=== PATIENT | female | born 1980 | race Caucasian/White ===

== ENCOUNTER 2020-01-09 04:02 | Observation (INO) | payer OTHER ==
[~2020-01-09] VITALS: Ht 160 cm; Wt 118.4 kg
[2020-01-09] VITALS (17 sets, daily range): BP systolic 91–154; BP diastolic 58–100
[~2020-01-09 04:02] MED LIST: DARVOCET N 1001 TAB PO; DAYPRO600 M1 PO; PHENERGAN25 M1 PO; ZOFRAN4 MG PO
--- NOTE | 2020-01-09 04:53 | NUR ---
PT PROVIDED WITH URINE CUP.
[2020-01-09 05:16] LABS: ALBUMIN 3.4 gm/dl (3.1-4.5); ALKALINE PHOSPHATASE 92 U/L (45-117); BUN 11 mg/dl (7-24); CHLORIDE 112 mmol/L (98-107); CREATININE 0.71 mg/dL (0.55-1.02); POTASSIUM 3.4 mmol/L (3.5-5.1); SGOT/AST 16 IU/L (3-35); SGPT/ALT 31 U/L (12-78); SODIUM 143 mmol/L (136-145); TOTAL PROTEIN 6.9 gm/dL (6.4-8.2)
[2020-01-09 05:49] LABS: BILIRUBIN NEGATIVE (NEGATIVE); BLOOD NEGATIVE (NEGATIVE); CLARITY CLEAR (CLEAR); COLOR STRAW (YELLOW); GLUCOSE NEGATIVE (NEGATIVE); KETONE NEGATIVE (NEGATIVE); LEUKO ESTERASE NEGATIVE (NEGATIVE); NITRITE NEGATIVE (NEGATIVE); SPECIFIC GRAVITY 1.005 (1.005-1.030); UROBILINOGEN 0.2 E.U./dl (0.2-1.0)
[2020-01-09 05:52] LABS: BACTERIA 1+
[2020-01-09 06:09] LABS: BASO % 0.4 % (0.0-1.0); EOS # 0.1 10*3/uL (0.0-0.4); EOS % 1.8 % (1.0-4.0); HEMATOCRIT 35.3 % (37.0-47.0); LYMPH % 44.4 % (27.0-41.0); MEAN CELL VOLUME 88.5 fl (81.0-99.0); MEAN CORPUSCULAR HGB 29.8 pg (27.0-31.0); MEAN CORPUSCULAR HGB CONC 33.7 g/dl (33.0-37.0); MONO # 0.4 10*3/uL (0.1-1.0); MONO % 8.1 % (3.0-9.0); NEUT # 2.1 10*3/uL (2.3-7.9); NEUT % 45.3 % (47.0-73.0); PLATELET COUNT AUTOMATED 178 10*3/uL (130-400); RED BLOOD COUNT 3.99 10*6/uL (4.10-5.10); RED CELL DISTRI WIDTH 11.9 % (0-14.5); WHITE BLOOD COUNT 4.6 10*3/uL (4.8-10.8)
--- NOTE | 2020-01-09 07:41 | NUR ---
PT RESTING IN BED, PT REMAINS IN A-FIB. A SECOND DOSE OF CARDIZEM ADMINISTERRED PER DR QUAN. PT DOES NOT WANT TO BE ADDMITTED, PT IS AFRAID OF COVID.I EXPLAINED TO PT SHE IS MORE AT RISK WITH TH A-FIB. WE WILL SEE OW THE SECOND DOSE WORKS, SHE IS IN AGREEMENT. HR 113.
--- NOTE | 2020-01-09 07:50 | NUR ---
ADMINISTERED IV CARDIZEM, PT REMAINS A-FIB, HR 80-90'S, BP 94/68. PT HAS NO COMPLAINTS. WILL CONTINUE TO MONITOR.
--- NOTE | 2020-01-09 09:35 | NUR ---
pt transported to [facility] in stable condition, remains in a-fib in the 90-120's with activity. cardaizem gtt infusing at 5 cc/hr per order. bedside reports given and sbar faxed.
--- NOTE | 2020-01-09 09:36 | NUR ---
A 39, admitted to , under the services of NAHOMI Cavazos DO with a diagnosis of ATRIAL FIBRILATION. Chief complaint is PALPITATIONS, NAUSEA,VOMITING,FEVERS. Patient arrived via bed from ER. Monitor applied. Initial assessment completed. Vital signs taken and recorded. NAHOMI CAVAZOS DO notified of admission to the unit. Orders received. See assessment for past medical history, medications and allergies. Patient and/or family oriented to unit. [facility] visitation policy reviewed. Clothing/patient valuable form completed. NARESH LOTT
--- NOTE | 2020-01-09 10:30 | NUR ---
CONSULT CALLED TO [facility] PER PHYSICIAN ORDER. PROVISIONING ANALYST GIVEN APPROPRIATE INFORMATION AND STATES THAT THE COVERING PHYSICIAN WILL SEE PATIENT.
--- NOTE | 2020-01-09 10:38 | NUR ---
A 39, admitted to 5E, under the services of NAHOMI Cavazos DO with a diagnosis of AFIB. Chief complaint is AFIB. Patient arrived via bed from ER. Monitor applied. Initial assessment completed. Vital signs taken and recorded. NAHOMI CAVAZOS DO notified of admission to the unit. Orders received. See assessment for past medical history, medications and allergies. Patient and/or family oriented to unit visitation policy reviewed. Clothing/patient valuable form completed. GABRIELE PURVIS
[2020-01-09] MEDS ORDERED: ALPRAZOLAM2 MG PO (10:59)
[2020-01-09] MEDS ORDERED: DILTIAZEM HCL60 MG PO (11:00)
[2020-01-09] MEDS ORDERED: LAMOTRIGINE200 MG PO (11:01)
[2020-01-09] MEDS ORDERED: OMEPRAZOLE MAGN20 MG PO (11:02)
[2020-01-09] MEDS ORDERED: PRISTIQ ER25 MG PO (11:02)
[2020-01-09] MEDS ORDERED: B COMPLEX1 EACH PO (11:06)
[2020-01-09] MEDS ORDERED: VITAMIN C500 M8 PO (11:06)
[2020-01-09] MEDS ORDERED: VITAMIN E100 UNI1 PO (11:07)
[2020-01-09] MEDS ORDERED: VITAMIN D350 MC2 PO (11:07)
[2020-01-09] MEDS ORDERED: ADIPEX-P37.5 M2 PO (11:08)
--- NOTE | 2020-01-09 11:20 | NUR ---
MAYO BALTAZAR NP NOTIFIED THAT MED REC IS UPDATED PER PT.
--- NOTE | 2020-01-09 11:49 | NUR ---
PT NOTIFIED THAT SHE TO BE NPO AT THIS TIME FOR PROCEDURE BY DIRECTOR OF SPORTS MEDICINE. PT ALSO NOTIFIED OF NEW MEDICATIONS THAT ARE ORDERED.
--- NOTE | 2020-01-09 11:51 | NUR ---
DR CORONEL GIVES ORDERS TO PLACE PT ON CARDIZEM ER 60 MG PO BID, TO BEGIN AT 2100, NEW ORDERS GIVEN TO PLACE ORDERS ON APIXABAN 5 MG PO, DOSE TO BE GIVEN NOW AND NEXT DOSE TO BE GIVEN AT 2100. PT IS TO BE NPO AT THIS TIME. PT TO HAVE CARDIOVERSION PROCEDURE. PT TO CONTINUE ON 5 MG CARDIZEM DRIP AND TO STOP CARDIZEM DRIP AFTER CARDIOVERSION. A FOLLOW UP EKG WILL BE ORDERED AFTER CARDIOVERSION AND IT IS POSSIBLE THAT PT CAN BE DISCHARGED HOME IF NO OTHER ABNORMALITIES ARE SHOWN. PT IS TO FOLLOW UP WITH DR CORONEL AFTER D/C.
--- NOTE | 2020-01-09 12:37 | NUR ---
PT TAKEN OFF OF FLOOR FOR CARDIOVERSION AT THIS TIME.
--- NOTE | 2020-01-09 13:54 | NUR ---
PT RETURNED TO FLOOR AT THIS TIME, IN A STABLE CONDITION.
[2020-01-09] MEDS ORDERED: ELIQUIS5 M1 PO (14:05)
--- NOTE | 2020-01-09 15:29 | NUR ---
PT RESTING IN BED, NO DISTRESS NOTED. STATES SHE HAS SOME MUSCLE SORENESS BUT NO REAL PAIN AND FEELS BETTER THAT SHES BACK IN RHYTHM. DENIES SOB OR CHEST PAIN. SAFETY MEASURES IN PLACE.
--- NOTE | 2020-01-09 17:39 | NUR ---
PT GIVEN TYLENOL 650 MG PO AT THIS TIME FOR C/O HEADACHE. WILL MONITOR FOR EFFECTIVENESS. CALL LIGHT IN REACH.
--- NOTE | 2020-01-09 18:39 | NUR ---
PT REPORTS TYLENOL EFFECITVE, RESTING IN BED. NO DISTRESS NOTED.
[2020-01-10] VITALS: BP 101/59
[2020-01-10 07:17] LABS: BASO % 0.6 % (0.0-1.0); EOS % 1.1 % (1.0-4.0); HEMATOCRIT 33.3 % (37.0-47.0); LYMPH # 1.9 10*3/uL (1.3-4.4); LYMPH % 51.9 % (27.0-41.0); MEAN CORPUSCULAR HGB 29.1 pg (27.0-31.0); MEAN CORPUSCULAR HGB CONC 32.7 g/dl (33.0-37.0); MEAN PLATELET VOLUME 9.8 fl (9.6-12.3); MONO # 0.2 10*3/uL (0.1-1.0); MONO % 6.7 % (3.0-9.0); NEUT # 1.4 10*3/uL (2.3-7.9); NEUT % 39.4 % (47.0-73.0); PLATELET COUNT AUTOMATED 169 10*3/uL (130-400); RED BLOOD COUNT 3.74 10*6/uL (4.10-5.10); WHITE BLOOD COUNT 3.6 10*3/uL (4.8-10.8)
--- NOTE | 2020-01-10 07:30 | NUR ---
TOOK OVER CARE OF PT AT THIS TIME. PT RESTING IN BED. NO S/S OF DISTRESS NOTED. NO COMPLAINTS VOICED. RESPIRATIONS EASY AND UNLABORED. PT PLEASANT MOOD. SAFETY MEASURES IN PLACE. CALL LIGHT IN REACH.
[2020-01-10 07:32] LABS: ALBUMIN 3.1 gm/dl (3.1-4.5); BUN 9 mg/dl (7-24); CHLORIDE 110 mmol/L (98-107); POTASSIUM 3.7 mmol/L (3.5-5.1); SGOT/AST 14 IU/L (3-35); SODIUM 137 mmol/L (136-145)
[2020-01-10 07:40] LABS: ALKALINE PHOSPHATASE 75 U/L (45-117); CHOLESTEROL 154 mg/dL (<200); CREATININE 0.67 mg/dL (0.55-1.02); FREE T4 0.95 ng/dl (0.76-1.46); HDL CHOLESTEROL 64 mg/dl (40-60); LDL CHOLESTEROL 80 mg/dL (9-159); SGPT/ALT 29 U/L (12-78); THYROID STIM HORMONE (HS) 0.522 uIU/ml (0.358-4.75); TOTAL PROTEIN 6.2 gm/dL (6.4-8.2); TRIGLYCERIDES 52 mg/dl (<150); VLDL CHOLESTEROL 10 mg/dL (6-40)
[2020-01-10 07:59] LABS: VITAMIN D, 25-HYDROXY 26.4 ng/mL (30-100)
[2020-01-10 08:16] VITALS: BP 102/67
--- NOTE | 2020-01-10 08:22 | NUR ---
Pulse ox 99% RA. No signs of respiratory distress.
--- NOTE | 2020-01-10 08:39 | NUR ---
Shift chart check completed.
[2020-01-10] MEDS ORDERED: DILTIAZEM HCL60 M1 PO ×2 (10:14)
--- NOTE | 2020-01-10 10:35 | NUR ---
DR JAMESON CALLED FOR CLARIFICATION OF CARDIZEM ORDER. PT STATES THAT CARDILOGIST TOLD HER THAT SHE WILL ONLY BE TAKING CARDIZEM 60 MG XR AT BEDTIME. ORDER ON EMAR STATES 60 MG BID 0900 AND 2100. PT REFUSED CARDIZEM THIS MORNING. DR JAMESON CHANGES CARDIZEM ORDERS; CARDIZEM 60 MG PO BID D/C'D. NEW ORDERS RECEIVED FOR CARDIZEM CD 120 MG PO AT HS. NEW ORDERS PLACED. WILL NOTIFY PATIENT OF THESE ORDERS.
--- NOTE | 2020-01-10 10:38 | NUR ---
DR GONZALEZ NOTIFIED OF MEDICATIONS CHANGES PER TELEPHONE ORDERS GIVEN BY DR JAMESON.
[2020-01-10] MEDS ORDERED: CARDIZEM CD120 M2 PO (10:48)
--- NOTE | 2020-01-10 10:48 | NUR ---
Discharge instructions reviewed with patient/family. Patient receptive and verbalizes understanding. Follow-up care arranged. Written instructions given to patient/family. NARESH LOTT
== END 2020-01-10 10:48 | disposition home or self-care (01) ==
LOC: ED 04:02 → EDHOLD 08:07 → 5E 08:07
PROVIDERS: Emergency Medicine; Registered Nurse; ADMIT Emergency Medicine
DX: I48.91 Unspecified atrial fibrillation (principal); E87.6 Hypokalemia; D68.9 Coagulation defect, unspecified; K21.9 Gastro-esophageal reflux disease without esophagitis; F41.1 Generalized anxiety disorder; F39 Unspecified mood [affective] disorder; E44.0 Moderate protein-calorie malnutrition; E66.9 Obesity, unspecified; E87.8 Other disorders of electrolyte and fluid balance, not elsewhere classified; D72.819 Decreased white blood cell count, unspecified; D64.9 Anemia, unspecified; E55.9 Vitamin D deficiency, unspecified; R73.9 Hyperglycemia, unspecified; Z68.41 Body mass index [BMI] 40.0-44.9, adult

== ENCOUNTER 2020-04-06 22:50 | Emergency (ER) | payer OTHER ==
[~2020-04-06] VITALS: Ht 160 cm
[~2020-04-06 22:50] MED LIST changes: +ADIPEX-P37.5 M2 PO; +ALPRAZOLAM2 MG PO; +B COMPLEX1 EACH PO; +CARDIZEM CD120 M2 PO; +DILTIAZEM HCL60 M1 PO; +DILTIAZEM HCL60 MG PO; +ELIQUIS5 M1 PO; +LAMOTRIGINE200 MG PO; +OMEPRAZOLE MAGN20 MG PO; +PRISTIQ ER25 MG PO; +VITAMIN C500 M8 PO; +VITAMIN D350 MC2 PO; +VITAMIN E100 UNI1 PO
[2020-04-06 23:20] LABS: BASO % 0.5 % (0.0-1.0); EOS # 0.1 10*3/uL (0.0-0.4); EOS % 1.2 % (1.0-4.0); HEMATOCRIT 37.2 % (37.0-47.0); LYMPH # 2.3 10*3/uL (1.3-4.4); LYMPH % 41.1 % (27.0-41.0); MEAN CELL VOLUME 88.4 fl (81.0-99.0); MEAN CORPUSCULAR HGB CONC 32.8 g/dl (33.0-37.0); MEAN PLATELET VOLUME 9.4 fl (9.6-12.3); MONO # 0.4 10*3/uL (0.1-1.0); MONO % 6.9 % (3.0-9.0); NEUT # 2.8 10*3/uL (2.3-7.9); NEUT % 50.1 % (47.0-73.0); PLATELET COUNT AUTOMATED 228 10*3/uL (130-400); RED BLOOD COUNT 4.21 10*6/uL (4.10-5.10); RED CELL DISTRI WIDTH 12.4 % (0-14.5); WHITE BLOOD COUNT 5.7 10*3/uL (4.8-10.8)
[2020-04-06 23:31] LABS: ACT PARTIAL THROMBO TIME 27.2 SECONDS (20.0-32.1)
[2020-04-06 23:37] LABS: ALBUMIN 3.7 gm/dl (3.1-4.5); ALKALINE PHOSPHATASE 89 U/L (45-117); BUN 13 mg/dl (7-24); CHLORIDE 107 mmol/L (98-107); CREATININE 0.85 mg/dL (0.55-1.02); SGOT/AST 15 IU/L (3-35); SGPT/ALT 28 U/L (12-78); SODIUM 143 mmol/L (136-145); TOTAL PROTEIN 7.3 gm/dL (6.4-8.2)
[2020-04-06 23:39] LABS: TROPONIN I < 0.015 ng/ml (<0.045)
== END 2020-04-07 00:41 | disposition home or self-care (01) ==
LOC: ED 22:50
PROVIDERS: Internal Medicine
DX: R07.89 Other chest pain (principal); Z79.899 Other long term (current) drug therapy

== ENCOUNTER 2020-04-17 00:01 | Emergency (ER) | payer OTHER | END 2020-04-17 01:22 | disposition home or self-care (01) | LOC: ED 00:01 | DX: Z20.828 Contact with and (suspected) exposure to other viral communicable diseases (principal); F41.9 Anxiety disorder, unspecified; F32.9 Major depressive disorder, single episode, unspecified; I48.91 Unspecified atrial fibrillation; Z88.8 Allergy status to other drugs, medicaments and biological substances; Z79.899 Other long term (current) drug therapy; Z79.2 Long term (current) use of antibiotics ==

== ENCOUNTER 2020-08-03 06:49 | Observation (INO) | payer OTHER ==
[~2020-08-03] VITALS: Ht 160 cm; Wt 129.7 kg
[2020-08-03] VITALS (9 sets, daily range): BP systolic 101–164; BP diastolic 52–111
[2020-08-03 07:19] LABS: BASO % 0.5 % (0.0-1.0); EOS # 0.1 10*3/uL (0.0-0.4); EOS % 1.5 % (1.0-4.0); HEMATOCRIT 37.8 % (37.0-47.0); LYMPH # 2.6 10*3/uL (1.3-4.4); LYMPH % 44.7 % (27.0-41.0); MEAN CELL VOLUME 87.1 fl (81.0-99.0); MEAN CORPUSCULAR HGB 29.3 pg (27.0-31.0); MEAN CORPUSCULAR HGB CONC 33.6 g/dl (33.0-37.0); MEAN PLATELET VOLUME 9.1 fl (9.6-12.3); MONO # 0.4 10*3/uL (0.1-1.0); MONO % 6.9 % (3.0-9.0); NEUT # 2.7 10*3/uL (2.3-7.9); NEUT % 46.1 % (47.0-73.0); PLATELET COUNT AUTOMATED 218 10*3/uL (130-400); RED BLOOD COUNT 4.34 10*6/uL (4.10-5.10); RED CELL DISTRI WIDTH 11.9 % (0-14.5); WHITE BLOOD COUNT 5.9 10*3/uL (4.8-10.8)
[2020-08-03 07:34] LABS: ACT PARTIAL THROMBO TIME 27.3 SECONDS (20.0-32.1); INTERNATIONAL NORM RATIO 0.9 (2.0-3.5)
[2020-08-03 07:36] LABS: ALBUMIN 3.9 gm/dl (3.1-4.5); ALKALINE PHOSPHATASE 114 U/L (45-117); BUN 19 mg/dl (7-24); CHLORIDE 110 mmol/L (98-107); CREATININE 0.63 mg/dL (0.55-1.02); POTASSIUM 3.5 mmol/L (3.5-5.1); SGOT/AST 13 IU/L (3-35); SGPT/ALT 40 U/L (12-78); SODIUM 142 mmol/L (136-145); TOTAL PROTEIN 7.4 gm/dL (6.4-8.2)
[2020-08-03 07:37] LABS: TROPONIN I < 0.015 ng/ml (<0.045)
[2020-08-03] MEDS ORDERED: CARDIZEM CD120 M2 PO (10:45)
[2020-08-04] VITALS: BP 122/90
[2020-08-04 02:00] VITALS: BP 109/60
[2020-08-04 04:00] VITALS: BP 110/64
[2020-08-04 06:25] LABS: BASO % 0.6 % (0.0-1.0); EOS # 0.1 10*3/uL (0.0-0.4); EOS % 1.9 % (1.0-4.0); HEMATOCRIT 35.3 % (37.0-47.0); LYMPH # 2.3 10*3/uL (1.3-4.4); LYMPH % 46.7 % (27.0-41.0); MEAN CELL VOLUME 87.8 fl (81.0-99.0); MEAN CORPUSCULAR HGB 29.4 pg (27.0-31.0); MEAN CORPUSCULAR HGB CONC 33.4 g/dl (33.0-37.0); MEAN PLATELET VOLUME 9.6 fl (9.6-12.3); MONO # 0.3 10*3/uL (0.1-1.0); MONO % 6.2 % (3.0-9.0); NEUT # 2.1 10*3/uL (2.3-7.9); NEUT % 44.4 % (47.0-73.0); PLATELET COUNT AUTOMATED 206 10*3/uL (130-400); RED BLOOD COUNT 4.02 10*6/uL (4.10-5.10); RED CELL DISTRI WIDTH 12.2 % (0-14.5); WHITE BLOOD COUNT 4.8 10*3/uL (4.8-10.8)
[2020-08-04 06:54] LABS: BUN 18 mg/dl (7-24); CHLORIDE 111 mmol/L (98-107); CREATININE 0.64 mg/dL (0.55-1.02); POTASSIUM 3.9 mmol/L (3.5-5.1); SODIUM 141 mmol/L (136-145)
[2020-08-04 08:00] VITALS: BP 120/80
[2020-08-04] MEDS ORDERED: ASPIRIN ADULT L81 M1 PO (11:50)
[2020-08-04] MEDS ORDERED: METOPROLOL SUCC50 M1 PO (11:50)
[2020-08-04] MEDS ORDERED: FLECAINIDE ACE100 M1 PO (11:50)
== END 2020-08-04 13:51 | disposition home or self-care (01) ==
LOC: ED 06:49 → 5E 08:58 → EDHOLD 08:58 → 4E 09:08 → 5E 09:20
PROVIDERS: Emergency Medicine; Student in an Organized Health Care Education/Training Program; ADMIT Internal Medicine; ATTEND Internal Medicine
DX: I48.20 Chronic atrial fibrillation, unspecified (principal); E87.8 Other disorders of electrolyte and fluid balance, not elsewhere classified; R79.82 Elevated C-reactive protein (CRP); E66.01 Morbid (severe) obesity due to excess calories; K21.9 Gastro-esophageal reflux disease without esophagitis; F41.1 Generalized anxiety disorder; F39 Unspecified mood [affective] disorder; E55.9 Vitamin D deficiency, unspecified; R00.2 Palpitations; E44.0 Moderate protein-calorie malnutrition; Z90.710 Acquired absence of both cervix and uterus; Z90.49 Acquired absence of other specified parts of digestive tract; Z98.890 Other specified postprocedural states; Z87.891 Personal history of nicotine dependence

== ENCOUNTER 2020-08-07 00:57 | Emergency (ER) | payer OTHER ==
[~2020-08-07 00:57] MED LIST changes: +ASPIRIN ADULT L81 M1 PO; +FLECAINIDE ACE100 M1 PO; +METOPROLOL SUCC50 M1 PO
[2020-08-07 02:03] LABS: BASO % 0.4 % (0.0-1.0); EOS # 0.1 10*3/uL (0.0-0.4); EOS % 1.8 % (1.0-4.0); HEMATOCRIT 32.7 % (37.0-47.0); LYMPH # 2.5 10*3/uL (1.3-4.4); LYMPH % 43.1 % (27.0-41.0); MEAN CELL VOLUME 87.9 fl (81.0-99.0); MEAN CORPUSCULAR HGB 29.6 pg (27.0-31.0); MEAN CORPUSCULAR HGB CONC 33.6 g/dl (33.0-37.0); MEAN PLATELET VOLUME 9.5 fl (9.6-12.3); MONO # 0.4 10*3/uL (0.1-1.0); NEUT # 2.7 10*3/uL (2.3-7.9); NEUT % 47.5 % (47.0-73.0); PLATELET COUNT AUTOMATED 208 10*3/uL (130-400); RED BLOOD COUNT 3.72 10*6/uL (4.10-5.10); RED CELL DISTRI WIDTH 11.9 % (0-14.5); WHITE BLOOD COUNT 5.7 10*3/uL (4.8-10.8)
[2020-08-07 02:42] LABS: ALBUMIN 3.4 gm/dl (3.1-4.5); BUN 13 mg/dl (7-24); CHLORIDE 110 mmol/L (98-107); CREATININE 0.71 mg/dL (0.55-1.02); LIPASE 83 U/L (73-393); POTASSIUM 3.9 mmol/L (3.5-5.1); SGOT/AST 11 IU/L (3-35); SGPT/ALT 31 U/L (12-78); SODIUM 142 mmol/L (136-145); TOTAL PROTEIN 6.5 gm/dL (6.4-8.2)
[2020-08-07 02:45] LABS: ALKALINE PHOSPHATASE 96 U/L (45-117)
[2020-08-07 02:46] LABS: TROPONIN I < 0.015 ng/ml (<0.045)
== END 2020-08-07 05:31 | disposition home or self-care (01) ==
LOC: ED 00:57
PROVIDERS: Student in an Organized Health Care Education/Training Program
DX: R07.89 Other chest pain (principal); T46.2X5A Adverse effect of other antidysrhythmic drugs, initial encounter; I48.91 Unspecified atrial fibrillation; E66.01 Morbid (severe) obesity due to excess calories; K21.9 Gastro-esophageal reflux disease without esophagitis; F41.9 Anxiety disorder, unspecified; F32.9 Major depressive disorder, single episode, unspecified; Z88.1 Allergy status to other antibiotic agents; Z88.8 Allergy status to other drugs, medicaments and biological substances; Z79.899 Other long term (current) drug therapy; Z79.82 Long term (current) use of aspirin; Z68.43 Body mass index [BMI] 50.0-59.9, adult; Z90.711 Acquired absence of uterus with remaining cervical stump; Z98.890 Other specified postprocedural states; Z98.51 Tubal ligation status; Y92.89 Other specified places as the place of occurrence of the external cause

== ENCOUNTER → 2020-10-13 | Outpatient (CLI) | payer OTHER | END | disposition home or self-care (01) | LOC: US 15:27 | PROVIDERS: ATTEND Specialist | DX: R18.8 Other ascites (principal); S39.91XA Unspecified injury of abdomen, initial encounter; X58.XXXA Exposure to other specified factors, initial encounter; Y93.89 Activity, other specified; Y92.89 Other specified places as the place of occurrence of the external cause; Y99.8 Other external cause status ==

== ENCOUNTER 2022-01-07 17:53 | Emergency (ER) | payer OTHER ==
[~2022-01-07] VITALS: Ht 160 cm; Wt 127.0 kg
[2022-01-07 19:02] LABS: BASO % 0.2 % (0.0-1.0); EOS % 0.2 % (1.0-4.0); HEMATOCRIT 36.8 % (37.0-47.0); LYMPH # 2.1 10*3/uL (1.3-4.4); LYMPH % 49.4 % (27.0-41.0); MEAN CELL VOLUME 85.8 fl (81.0-99.0); MEAN CORPUSCULAR HGB 29.6 pg (27.0-31.0); MEAN CORPUSCULAR HGB CONC 34.5 g/dl (33.0-37.0); MEAN PLATELET VOLUME 9.1 fl (9.6-12.3); MONO # 0.5 10*3/uL (0.1-1.0); MONO % 11.6 % (3.0-9.0); NEUT # 1.6 10*3/uL (2.3-7.9); NEUT % 38.4 % (47.0-73.0); PLATELET COUNT AUTOMATED 189 10*3/uL (130-400); RED BLOOD COUNT 4.29 10*6/uL (4.10-5.10); RED CELL DISTRI WIDTH 11.9 % (0-14.5); WHITE BLOOD COUNT 4.2 10*3/uL (4.8-10.8)
[2022-01-07 19:19] LABS: ALKALINE PHOSPHATASE 75 U/L (45-117); BUN 9 mg/dl (7-24); CHLORIDE 108 mmol/L (98-107); CREATININE 0.74 mg/dL (0.55-1.02); LIPASE 105 U/L (73-393); POTASSIUM 3.3 mmol/L (3.5-5.1); SGOT/AST 15 IU/L (3-35); SGPT/ALT 22 U/L (12-78); SODIUM 143 mmol/L (136-145); TOTAL PROTEIN 6.9 gm/dL (6.4-8.2)
[2022-01-07] MEDS ORDERED: K-TAB20 MEQ PO (22:19)
== END 2022-01-07 22:25 | disposition home or self-care (01) ==
LOC: ED 17:53
PROVIDERS: Physician Assistant
DX: U07.1 COVID-19 (principal); E87.6 Hypokalemia; Z88.1 Allergy status to other antibiotic agents; Z88.8 Allergy status to other drugs, medicaments and biological substances; Z79.899 Other long term (current) drug therapy; Z98.51 Tubal ligation status; Z90.49 Acquired absence of other specified parts of digestive tract; Z90.89 Acquired absence of other organs; Z98.890 Other specified postprocedural states; Z87.891 Personal history of nicotine dependence

== ENCOUNTER → 2023-04-25 | Outpatient (CLI) | payer OTHER ==
[~2023-04-25] MED LIST changes: +K-TAB20 MEQ PO
[2023-04-25 17:54] LABS: BILIRUBIN Negative (Negative); BLOOD Negative (Negative); CLARITY Clear (Clear); COLOR Yellow (Yellow); GLUCOSE Negative (Negative); KETONE Negative (Negative); LEUKO ESTERASE Negative (Negative); NITRITE Negative (Negative); PH 6.5 (4.5-8.0)
[2023-04-25 17:55] LABS: BASO % 0.5 % (0.0-1.0); EOS # 0.1 10*3/uL (0.0-0.4); EOS % 1.7 % (1.0-4.0); HEMATOCRIT 38.4 % (37.0-47.0); LYMPH # 1.3 10*3/uL (1.3-4.4); LYMPH % 21.2 % (27.0-41.0); MEAN CELL VOLUME 88.1 fl (81.0-99.0); MEAN CORPUSCULAR HGB 29.8 pg (27.0-31.0); MEAN CORPUSCULAR HGB CONC 33.9 g/dl (33.0-37.0); MONO # 0.4 10*3/uL (0.1-1.0); MONO % 6.9 % (3.0-9.0); NEUT # 4.1 10*3/uL (2.3-7.9); NEUT % 69.4 % (47.0-73.0); PLATELET COUNT AUTOMATED 261 10*3/uL (130-400); RED BLOOD COUNT 4.36 10*6/uL (4.10-5.10); RED CELL DISTRI WIDTH 12.6 % (0-14.5); RETICULOCYTE % 2.16 % (0.50-2.50); WHITE BLOOD COUNT 5.9 10*3/uL (4.8-10.8)
[2023-04-25 18:20] LABS: BACTERIA 1+
[2023-04-25 18:26] LABS: ALKALINE PHOSPHATASE 95 U/L (46-116); BUN 13 mg/dl (9-23); CHLORIDE 105 mmol/L (98-107); CHOLESTEROL 181 mg/dL (<200); GAMMA GLUTAMYL TRANSPEPTIDASE 23 U/L (0-73); LDL CHOLESTEROL 93 mg/dL (9-159); POTASSIUM 4.1 mmol/L (3.4-5.1); SGPT/ALT 43 U/L (5-49); T3 UPTAKE 25.6 % (22.4-36.7); THYROXINE (T4) TOTAL 11.5 ug/dl (4.5-10.9); TOTAL PROTEIN 7.5 gm/dL (6.0-8.0); TRIGLYCERIDES 63 mg/dl (<150); URIC ACID 4.4 mg/dL (3.1-7.8)
[2023-04-25 18:54] LABS: VITAMIN D, 25-HYDROXY 33.8 ng/mL (30-100)
[2023-04-26 14:08] LABS: ANTI-DSDNA ANTIBODIES <1 IU/mL (0-9)
== END | disposition home or self-care (01) ==
LOC: LAB 16:58
PROVIDERS: ATTEND Family Medicine
DX: E78.5 Hyperlipidemia, unspecified (principal); E55.9 Vitamin D deficiency, unspecified; R79.89 Other specified abnormal findings of blood chemistry; R53.83 Other fatigue; R74.8 Abnormal levels of other serum enzymes; R06.02 Shortness of breath

== ENCOUNTER 2023-08-08 22:56 | Emergency (ER) | payer OTHER ==
[~2023-08-08] VITALS: Ht 160 cm; Wt 127.0 kg
[2023-08-08] MEDS ORDERED: IOHEXOL 300 MG/ML 100 ML VIAL IV ONE (23:55)
[2023-08-09 00:19] LABS: BASO % 0.4 % (0.0-1.0); EOS # 0.1 10*3/uL (0.0-0.4); EOS % 1.7 % (1.0-4.0); HEMATOCRIT 36.9 % (37.0-47.0); LYMPH # 1.6 10*3/uL (1.3-4.4); LYMPH % 22.7 % (27.0-41.0); MEAN CELL VOLUME 89.8 fl (81.0-99.0); MEAN CORPUSCULAR HGB 29.2 pg (27.0-31.0); MEAN CORPUSCULAR HGB CONC 32.5 g/dl (33.0-37.0); MONO # 0.4 10*3/uL (0.1-1.0); MONO % 6.4 % (3.0-9.0); NEUT # 4.7 10*3/uL (2.3-7.9); NEUT % 68.5 % (47.0-73.0); PLATELET COUNT AUTOMATED 251 10*3/uL (130-400); RED BLOOD COUNT 4.11 10*6/uL (4.10-5.10); RED CELL DISTRI WIDTH 12.4 % (0-14.5); WHITE BLOOD COUNT 6.9 10*3/uL (4.8-10.8)
[2023-08-09 00:40] LABS: BUN 12 mg/dl (9-23); CHLORIDE 104 mmol/L (98-107); POTASSIUM 4.1 mmol/L (3.4-5.1)
[2023-08-09] MEDS ORDERED: NYSTATIN CREAM15 GM T (05:12)
[2023-08-09] MEDS ORDERED: TOBREX3.5 GM OPH (05:12)
== END 2023-08-09 05:16 | disposition home or self-care (01) ==
LOC: ED 22:56
PROVIDERS: Emergency Medicine
DX: H10.9 Unspecified conjunctivitis (principal); B35.9 Dermatophytosis, unspecified; I48.91 Unspecified atrial fibrillation; K21.9 Gastro-esophageal reflux disease without esophagitis; E66.01 Morbid (severe) obesity due to excess calories; E44.0 Moderate protein-calorie malnutrition; Z88.1 Allergy status to other antibiotic agents; Z88.5 Allergy status to narcotic agent; Z88.2 Allergy status to sulfonamides; Z88.8 Allergy status to other drugs, medicaments and biological substances; Z79.899 Other long term (current) drug therapy; Z79.82 Long term (current) use of aspirin; Z68.43 Body mass index [BMI] 50.0-59.9, adult; Z98.890 Other specified postprocedural states; Z90.711 Acquired absence of uterus with remaining cervical stump; Z90.49 Acquired absence of other specified parts of digestive tract; Z90.89 Acquired absence of other organs; Z98.51 Tubal ligation status